=== PATIENT | female | born 1995 | race Caucasian/White ===

== ENCOUNTER 2016-12-08 06:45 | Day surgery (SDC) | payer BC, MEDICAID ==
[~2016-12-08 06:45] MED LIST: Sodium Chloride 0.9% 10 ML Syringe FLUSH PRN
[2016-12-08] MEDS: Lactated Ringers 1,000 ML IV SCH ×2 (07:54→10:28)
[2016-12-08] MEDS ORDERED: Rocuronium 100 MG/10 ML MDV IV ONE (08:00)
[2016-12-08] MEDS ORDERED: Dexamethasone 4 MG/ML 5 ML MDV IVPUSH ONE (08:00)
[2016-12-08] MEDS ORDERED: Glycopyrrolate 0.2 MG/ML 5 ML MDV IV ONE (08:00)
[2016-12-08] MEDS ORDERED: Propofol 200 MG/20 ML SDV IV ONE (08:00)
[2016-12-08] MEDS ORDERED: HYDROmorphone 2 MG/ML SDV IV ONE (08:00)
[2016-12-08] MEDS ORDERED: Ondansetron 4 MG/2 ML SDV IVPUSH ONE (08:00)
[2016-12-08] MEDS ORDERED: diphenhydrAMINE 50 MG/ML SDV IV ONE (08:00)
[2016-12-08] MEDS ORDERED: Lactated Ringers 1,000 ML IV ONE (08:00)
[2016-12-08] MEDS ORDERED: Midazolam 1 MG/ML 2 ML SDV IV ONE (08:00)
[2016-12-08] MEDS ORDERED: Neostigmine Methylsulfate 10 MG/10 ML MDV IVPUSH ONE (08:00)
[2016-12-08] MEDS ORDERED: fentaNYL 100 MCG/2 ML SDV IV ONE (08:00)
--- NOTE | 2016-12-08 08:11 | PCM.HPR ---
H & P Addendum review - H & P Addendum Review Date of Original H & P: 12/06/16 Date Reviewed: 12/08/16 Time Reviewed: 07:55 Patient was Examined: No Changes (ok to proceed with lap marleni)
--- NOTE | 2016-12-08 09:33 | PCM.OPNOTE ---
- General Post-Op/Procedure Note Date of Surgery/Procedure: 12/08/16 Operative Procedure(s): Lap Yamilex Findings: Chronic Cholecystitis and Adhesions Pre Op Diagnosis: Chronic Cholecystitis Post-Op Diagnosis: Same Anesthesia Technique: General ET Tube Primary Surgeon: Yunior Lawrence Anesthesia Provider: [place] Nick Pathology: Gallbladder EBL in mLs: 20 Complications: None Condition: Good
[2016-12-08] MEDS ORDERED: Promethazine 25 MG/ML SDV IM PRN (09:44)
[2016-12-08] MEDS ORDERED: Naloxone 0.4 MG/ML SDV IVPUSH PRN (09:44)
[2016-12-08] MEDS ORDERED: HYDROmorphone 2 MG/ML SDV IV PRN (09:44)
[2016-12-08] MEDS ORDERED: HYDROmorphone 2 MG/ML SDV IVPUSH PRN (09:44)
[2016-12-08] MEDS ORDERED: fentaNYL 100 MCG/2 ML SDV IVPUSH PRN (09:44)
[2016-12-08] MEDS ORDERED: Ondansetron 4 MG/2 ML SDV IVPUSH PRN (09:44)
[2016-12-08] MEDS ORDERED: Albuterol 0.083% 2.5 MG/3 ML Neb Soln NEB PRN (09:44)
[2016-12-08] MEDS ORDERED: Lactated Ringers 1,000 ML IV SCH (09:45)
[2016-12-08] MEDS ORDERED: Acetaminophen/HYDROcodone 325-5 MG Tab PO ONE (10:35)
[2016-12-08] MEDS ORDERED: hydrOXYzine HCl 50 MG/ML SDV IM ONE (11:22)
--- NOTE | 2016-12-08 11:22 | OR ---
DATE OF OPERATION: 12/08/2016 SURGEON: Yunior Lawrence MD PREOPERATIVE DIAGNOSIS: Chronic cholecystitis. POSTOPERATIVE DIAGNOSIS: Chronic cholecystitis with adhesions. PROCEDURE: Laparoscopic cholecystectomy with adhesiolysis. ANESTHESIA: General. PROCEDURE IN DETAIL: The patient was brought to the operating room, where general endotracheal anesthesia was administered. Her abdomen was prepped with ChloraPrep and draped sterilely. An infraumbilical incision was made and extended into the peritoneal cavity without difficulty. The Radha cannulator was introduced and pneumoperitoneum obtained. Three 5-mm ports were placed in the usual positions. The patient was placed in reverse Trendelenburg position and rotated to the left. The gallbladder was visible at its upper tip and was mostly covered with omental adhesions. Approximately 20 minutes was spent taking down adhesions to expose the undersurface of the gallbladder. There were many fibrous adhesions and careful dissection was undertaken to dissect the cystic artery and cystic duct free. An enlarged cystic duct node was also present. Once the cystic artery anatomy was defined, this was doubly clipped proximally and once distally, and then transected. There was also a posterior branch that was doubly clipped proximally and cauterized distally. The cystic duct was milked back into the gallbladder, then doubly clipped proximally, once distally, and then transected. The gallbladder was then removed from the bed of the liver using electrocautery. Another vessel on the bed of the liver was clipped proximally and cauterized distally. Once the gallbladder was completely freed up, it was brought out through the umbilical incision. The right upper quadrant was thoroughly inspected and return was clear and hemostasis was assured. Ports were removed under direct vision and were hemostatic. Umbilical fascia was closed with [id number] 0 Vicryl. Skin was closed with 4-0 Vicryl subcuticular sutures. Benzoin and Steri-Strips were placed and Band-Aids applied. The patient tolerated the procedure well. ESTIMATED BLOOD LOSS: 20 mL. She returned to postanesthesia in stable condition. /[id number] LUPE/SHAILESH MTDD
== END 2016-12-08 12:14 | disposition home or self-care (01) ==
LOC: FB.SDS 06:45
PROVIDERS: ATTEND Surgery
DX: K81.1 Chronic cholecystitis (principal); F41.1 Generalized anxiety disorder; Z79.899 Other long term (current) drug therapy
CPT/HCPCS: 36415; 47562; 74176; 80053; 81025; 85025; 88304; 96372; 99284; A9270; J1100; J1170; J1200; J2250; J2270; J2405; J2704; J2710; J3010; J7120

== ENCOUNTER 2016-12-08 21:25 | Emergency (ER) | payer BC ==
[2016-12-08] MEDS ORDERED: Morphine 10 MG/ML Syringe IM ONE (22:08)
[2016-12-08] MEDS ORDERED: Iopamidol 755 Mg/ML 100 ML Bottle IV ONE (22:30)
--- NOTE | 2016-12-09 00:33 | ER ---
DATE SEEN: 12/08/2016 CHIEF COMPLAINT: Abdominal pain. HISTORY OF PRESENT ILLNESS: This is a 21-year-old female who had a gallbladder surgery today laparoscopically. She presents with uncontrollable pain tonight. The pain is sharp, worse with movement, pseudo-distention of the abdomen. REVIEW OF SYSTEMS: No fever. No vomiting or constipation. ALLERGIES: No known allergies. PHYSICAL EXAMINATION: VITAL SIGNS: Afebrile, blood pressure is normal, pulse 78. ABDOMEN: Slightly distended, exquisitely tender to palpation, but soft. No masses. Bowel sounds are present. LABORATORY DATA: White cell count 14.9. CT showed some pneumoperitoneum likely related to the surgery. IMPRESSION: Postoperative pain. PLAN: Morphine 10 mg IM, symptoms improved. I advised to drink fluids, use a heating pad, and see Dr. Lawrence tomorrow. TIME SEEN: 2230 hours. /[id number] BRENNON/SHAILESH
== END 2016-12-08 23:10 | disposition home or self-care (01) ==
LOC: FB.ED 21:25
DX: G89.18 Other acute postprocedural pain (principal); R10.9 Unspecified abdominal pain
CPT/HCPCS: 36415; 74176; 80053; 85025; 96372; 99284; J2270